=== PATIENT | female | born 1985 | race Caucasian/White ===

== ENCOUNTER 2021-11-26 11:20 | Emergency (ER) | payer OTHER ==
[~2021-11-26] VITALS: Ht 157.5 cm; Wt 64.7 kg
[2021-11-26] MEDS ORDERED: IV NORMAL SALINE 500ML BAG 500 ML IV ONE (12:00)
--- NOTE | 2021-11-26 12:07 | ED.ADGEN ---
General Adult EDM: Chief Complaint: SUICDAL IDEATION HPI: HPI: Patient is a 36 year old 36-year-old female coming in for numerous complaints. Patient states that she has been having suicidal thoughts but no plan. Denies any HI or hallucinations. She is also complaining of shortness of breath, cough, and chest pressure. Patient is concerned about having a blood clot, was told by a family member to take omega-3 to prevent them. States there is been blood clots and other members in her family but has not what happened personally. Patient states that she was diagnosed with COVID-19 1 week ago on a home test. She had a prior suicide attempt about 15 years ago by overdose Review of Systems: Review of Systems: All other systems within normal limits except for as noted in the HPI Current Medications: Current Medications Medications (Trade) Dose Ordered Sig/Genna Start Time Stop Time Status Last Admin Dose Admin Sodium Chloride 500 ml @ 500 mls/hr 1X ONCE 11/26/21 12:00 11/26/21 12:59 DC 11/26/21 12:30 500 MLS/HR Allergies: Allergies: Allergies Coded Allergies Type Severity Reaction Last Updated Verified Iodinated Contrast Media Allergy Intermediate 11/26/21 Yes benzonatate Allergy Intermediate UNKNOWN 11/26/21 Yes Physical Exam: PE: Constitutional: Well developed, well nourished, no acute distress, non-toxic appearance. [] HENT: Normocephalic, atraumatic, bilateral external ears normal, nose normal. [ ] Eyes: PERRLA, conjunctiva normal, no discharge. [] Neck: No rigidity, supple, no stridor. [] Cardiovascular: Regular rate and rhythm, brisk cap refill [] Lungs & Thorax: Non labored symmetric respirations, no tachypnea or respiratory distress [] Abdomen: Soft, nondistended. Skin: Warm, dry, no erythema, no rash. [] Back: Unremarkable Extremities: No deformities, range of motion grossly intact, no lower extremity edema [] Neurologic: Alert and oriented X 3, no focal deficits noted. [] Psychologic: Affect normal, judgement normal, mood normal. [] Current Patient Data: Labs: Laboratory Tests Test 11/26/21 12:03 11/26/21 12:14 11/26/21 12:27 11/26/21 14:30 Urine Opiates Screen Neg (NEG) Urine Methadone Screen Neg (NEG) Urine Barbiturates Neg (NEG) Urine Phencyclidine Screen Neg (NEG) Urine Amphetamine/Methamphetamine Neg (NEG) Urine Benzodiazepines Screen Neg (NEG) Urine Cocaine Screen Neg (NEG) Urine Cannabinoids Screen Neg (NEG) Urine Ethyl Alcohol Neg (NEG) Urine Collection Type Unknown Urine Color Yellow Urine Clarity Clear Urine pH 7.0 (<5.0-8.0) Urine Specific [place] 1.015 (1.000-1.030) Urine Protein Negative mg/dL (NEG-TRACE) Urine Glucose (UA) Negative mg/dL (NEG) Urine Ketones (Stick) Negative mg/dL (NEG) Urine Blood Negative (NEG) Urine Nitrite Negative (NEG) Urine Bilirubin Negative (NEG) Urine Urobilinogen Dipstick 0.2 mg/dL (0.2 mg/dL) Urine Leukocyte Esterase Negative (NEG) Urine RBC 0 /HPF (0-2) Urine WBC Occ /HPF (0-4) Urine Squamous Epithelial Cells Mod /LPF Urine Bacteria Few /HPF (0-FEW) White Blood Count 8.5 x10^3/uL (4.0-11.0) Red Blood Count 4.25 x10^6/uL (3.50-5.40) Hemoglobin 12.7 g/dL (12.0-15.5) Hematocrit 37.2 % (36.0-47.0) Mean Corpuscular Volume 88 fL (79-100) Mean Corpuscular Hemoglobin 30 pg (25-35) Mean Corpuscular Hemoglobin Concent 34 g/dL (31-37) Red Cell Distribution Width 12.3 % (11.5-14.5) Platelet Count 249 x10^3/uL (140-400) Neutrophils (%) (Auto) 53 % (31-73) Lymphocytes (%) (Auto) 35 % (24-48) Monocytes (%) (Auto) 8 % (0-9) Eosinophils (%) (Auto) 3 % (0-3) Basophils (%) (Auto) 1 % (0-3) Neutrophils # (Auto) 4.5 x10^3/uL (1.8-7.7) Lymphocytes # (Auto) 3.0 x10^3/uL (1.0-4.8) Monocytes # (Auto) 0.7 x10^3/uL (0.0-1.1) Eosinophils # (Auto) 0.3 x10^3/uL (0.0-0.7) Basophils # (Auto) 0.0 x10^3/uL (0.0-0.2) D-Dimer (Blank) 0.27 ug/mlFEU (0.00-0.50) Sodium Level 143 mmol/L (136-145) Potassium Level 3.4 mmol/L (3.5-5.1) L Chloride Level 108 mmol/L (98-107) H Carbon Dioxide Level 24 mmol/L (21-32) Anion Gap 11 (6-14) Blood Urea Nitrogen 12 mg/dL (7-20) Creatinine 0.4 mg/dL (0.6-1.0) L Estimated GFR (Cockcroft-Gault) 180.6 BUN/Creatinine Ratio 30 (6-20) H Glucose Level 66 mg/dL (70-99) L Calcium Level 7.2 mg/dL (8.5-10.1) L Magnesium Level 1.7 mg/dL (1.8-2.4) L Total Bilirubin 0.2 mg/dL (0.2-1.0) Aspartate Amino Transferase (AST) 19 U/L (15-37) Alanine Aminotransferase (ALT) 34 U/L (14-59) Alkaline Phosphatase 61 U/L (46-116) Troponin I High Sensitivity 4 ng/L (4-50) ST-Plo-R-Type Natriuretic Peptide 55 pg/mL (0-124) Total Protein 6.1 g/dL (6.4-8.2) L Albumin 2.7 g/dL (3.4-5.0) L Albumin/Globulin Ratio 0.8 (1.0-1.7) L Ethyl Alcohol Level < 10 mg/dL (0-10) Influenza Type A Antigen Negative (NEGATIVE) Influenza Type B Antigen Negative (NEGATIVE) SARS-CoV-2 Antigen (Rapid) Negative (NEGATIVE) Laboratory Tests 11/26/21 12:27 Laboratory Tests 11/26/21 12:27 Vital Signs: Vital Signs Date Time Temp Pulse Resp B/P (MAP) Pulse Ox O2 Delivery O2 Flow Rate FiO2 11/26/21 12:26 92 17 100/67 (78) 99 Room Air 11/26/21 11:36 96.8 96.8 EKG: EKG: Sinus rhythm, heart rate 90 beats minute, normal axis, no ST elevation depression, no ectopy [] Heart Score: C/O Chest Pain: Yes HEART Score for Chest Pain: HEART Score for Chest Pain Response (Comments) Value History Slighlty/Non-Suspicious 0 ECG Normal 0 Age < 45 0 Risk Factors No Risk Factors 0 Troponin < Normal Limit 0 Total 0 Risk Factors: Risk Factors: DM, Current or recent (<one month) smoker, HTN, HLP, family history of CAD, obesity. Risk Scores: Score 0 - 3: 2.5% MACE over next 6 weeks - Discharge Home Score 4 - 6: 20.3% MACE over next 6 weeks - Admit for Clinical Observation Score 7 - 10: 72.7% MACE over next 6 weeks - Early Invasive Strategies Radiology/Procedures: Radiology/Procedures: [facility] [address] [place] [address] IMAGING REPORT Signed PATIENT: CEDRIC VARGAS ACCOUNT: [id number] : 1985 LOCATION: ER AGE: 36 SEX: F EXAM STATUS: REG ER ORD. PHYSICIAN: TOM LUCERO MD REASON: cough and chest heaviness x 24 hours PROCEDURE: CHEST PA & LATERAL PA and lateral views of the chest. Comparison: None. Indication: Cough and chest heaviness for 24 hours Findings: The heart size is normal. No pneumothorax or effusion. No air space or interstitial disease. The bony structures are intact. Impression: 1. No acute cardiopulmonary process. Electronically signed by: Sourav Cho MD (11/26/2021 12:50 PM) [id number] DICTATED and SIGNED BY: SOURAV CHO MD DATE: 11/26/21 [id number] [] Course & Med Decision Making: Course & Med Decision Making Pertinent Labs and Imaging studies reviewed. (See chart for details) Patient evaluated by PET member Jenny and deemed appropriate for discharge with a safety plan. [] Dragon Disclaimer: Dragon Disclaimer: This electronic medical record was generated, in whole or in part, using a voice recognition dictation system. Departure Departure Impression: Primary Impression: Suicidal ideations Additional Impression: Chest pain Disposition: 01 HOME / SELF CARE / HOMELESS Condition: STABLE Referrals: SLOAN KENDALL MD (PCP) Patient Instructions: Suicidal Feelings, How to Help Yourself Problem Qualifiers TOM LUCERO MD Nov 26, 2021 12:07
[2021-11-26 12:22] LABS: BILIRUBIN,URINE NEGATIVE (NEG); CLARITY,URINE CLEAR; COLOR,URINE YELLOW; NITRITE,URINE NEGATIVE (NEG); PROTEIN,URINE NEGATIVE (NEG-TRACE); UROBILINOGEN,URINE 0.2 mg/dL (0.2 mg/dL)
[2021-11-26 12:28] LABS: BACTERIA,URINE FEW /HPF (0-FEW); RBC,URINE 0 /HPF (0-2); WBC,URINE OCC /HPF (0-4)
--- NOTE | 2021-11-26 12:38 | EKG ---
[facility] [address] [place] [address] Test Date: 2021-11-26 Test Time: 11:59:03 Pat Name: CEDRIC VARGAS Department: Room: Gender: F [employer] Operations Specialist: : 1985 Requested By: TOM LUCERO Order Number: [id number] Reading MD: Hugo Martínez Measurements Intervals [place] Rate: 94 P: 38 HI: 158 QRS: 66 QRSD: 82 T: 65 QT: 354 QTc: 443 Interpretive Statements SINUS RHYTHM Electronically Signed On 11-29-2021 16:34:06 STONE ROUGHER by Hugo Martínez
[2021-11-26 12:41] LABS: BASO % 1 % (0-3); EOS # 0.3 x10^3/uL (0.0-0.7); EOS % 3 % (0-3); HEMATOCRIT 37.2 % (36.0-47.0); HEMOGLOBIN 12.7 g/dL (12.0-15.5); LYMPH % 35 % (24-48); MEAN CORPUSCULAR HEMOGLOBIN 30 pg (25-35); MEAN CORPUSCULAR HGB CONC 34 g/dL (31-37); MEAN CORPUSCULAR VOLUME 88 fL (79-100); MONO # 0.7 x10^3/uL (0.0-1.1); MONO % 8 % (0-9); NEUT # 4.5 x10^3/uL (1.8-7.7); NEUT % 53 % (31-73); PLATELET COUNT 249 x10^3/uL (140-400); RED BLOOD COUNT 4.25 x10^6/uL (3.50-5.40); RED CELL DISTRIBUTION WIDTH 12.3 % (11.5-14.5); WHITE BLOOD COUNT 8.5 x10^3/uL (4.0-11.0)
[2021-11-26 12:50] LABS: CALCIUM 7.2 mg/dL (8.5-10.1); CREATININE 0.4 mg/dL (0.6-1.0); GFR 180.6; POTASSIUM 3.4 mmol/L (3.5-5.1)
--- NOTE | 2021-11-26 12:53 | RAD ---
PA and lateral views of the chest. Comparison: None. Indication: Cough and chest heaviness for 24 hours Findings: The heart size is normal. No pneumothorax or effusion. No air space or interstitial disease. The bon y structures are intact. Impression: 1. No acute cardiopulmonary process. Electronically signed by: Sourav Cho MD (11/26/2021 12:50 PM) [id number]
[2021-11-26 12:56] LABS: ALBUMIN 2.7 g/dL (3.4-5.0); ALBUMIN/GLOBULIN RATIO 0.8 (1.0-1.7); MAGNESIUM 1.7 mg/dL (1.8-2.4); TOTAL BILIRUBIN 0.2 mg/dL (0.2-1.0); TOTAL PROTEIN 6.1 g/dL (6.4-8.2)
[2021-11-26 13:50] LABS: AMPHETAMINE/METHAMPHETAMINE NEG (NEG); BARBITURATES NEG (NEG); BENZODIAZEPINES NEG (NEG); CANNABINOIDS NEG (NEG); COCAINE NEG (NEG); METHADONE NEG (NEG); OPIATES NEG (NEG); PHENCYCLIDINE NEG (NEG)
--- NOTE | 2021-11-26 14:45 | NUR ---
Pt in no obvious distress. Pt declining offer of blanket.
[2021-11-26 15:00] LABS: INFLUENZA A PATIENT NEGATIVE (NEGATIVE); INFLUENZA B PATIENT NEGATIVE (NEGATIVE)
--- NOTE | 2021-11-26 15:20 | NUR ---
Pt in no obvious distress. Overhead lights and television on. NBP being obtained.
--- NOTE | 2021-11-26 16:21 | NUR ---
Pt in no obvious distress. Overhead lights and television are both on.
--- NOTE | 2021-11-26 17:20 | NUR ---
PAT staff member in room speaking with pt.
--- NOTE | 2021-11-26 17:41 | NUR ---
Pt in no obvious distress. Overhead lights on.
[2021-11-26 18:20] VITALS: BP 102/64
--- NOTE | 2021-11-28 13:27 | NUR ---
IP: Informed pt of positive covid test and the need to quarantine for 10 days. Pt verbalized understanding.
== END 2021-11-26 18:31 | disposition home or self-care (01) ==
LOC: ER 11:20
DX: U07.1 COVID-19 (principal); R45.851 Suicidal ideations; R07.89 Other chest pain; Z91.041 Radiographic dye allergy status; Z88.8 Allergy status to other drugs, medicaments and biological substances
CPT/HCPCS: 36415; 71046; 80053; 80307; 81001; 83735; 83880; 84484; 85025; 85379; 93005; 96360; 99285; G0480; J7040; U0003; U0005